=== PATIENT | female | born 1955 | race Caucasian/White ===

== ENCOUNTER 2020-10-24 17:53 | Emergency (ER) | payer MEDICARE, OTHER ==
[2020-10-24 18:47] LABS: HEMOGLOBIN 14.6 gm/dl (12.3-15.3); RED BLOOD COUNT 4.4 M/UL (4.00-5.10); WHITE BLOOD COUNT 7.6 K/UL (4.5-11.0)
[2020-10-24 19:10] LABS: BUN/CREATININE RATIO 25 (0-10)
== END 2020-10-24 21:53 | disposition home or self-care (01) ==
LOC: ER1 17:53
PROVIDERS: Physician Assistant
DX: R07.89 Other chest pain (principal); R00.2 Palpitations; E78.5 Hyperlipidemia, unspecified; Z90.710 Acquired absence of both cervix and uterus; F17.200 Nicotine dependence, unspecified, uncomplicated; Z79.899 Other long term (current) drug therapy
CPT/HCPCS: 36415; 71045; 80053; 82550; 82553; 83874; 84484; 85025; 85379; 93005; 99285; Q9967